=== PATIENT | male | born 1995 | race Two or more races ===

== ENCOUNTER 2020-09-24 18:03 | Emergency (ER) | payer OTHER ==
[~2020-09-24] VITALS: Ht 182.9 cm; Wt 72.6 kg
[2020-09-24] MEDS ORDERED: LEVOFLOXACIN5 ML (18:18)
== END 2020-09-24 22:04 | disposition home or self-care (01) ==
LOC: ER 18:03
DX: K12.2 Cellulitis and abscess of mouth (principal)